=== PATIENT | male | born 2000 | race Caucasian/White ===

== ENCOUNTER 2023-02-22 14:12 | Emergency (ER) | payer OTHER, SELFPAY ==
--- NOTE | ~2023-02-22 | US_ITS ---
US scrotum doppler DATE: 02/22/2023 15:23 INDICATION: Right scrotal pain TECHNIQUE: Real-time and color flow imaging and Doppler analysis of the scrotal contents COMPARISON: None FINDINGS: Right testicle measures 4.2 x 2.7 x 2.3 cm. Left testicle measures 3.8 x 2.7 x 1.8 cm. No testicular mass lesion is detected. There is homogeneous symmetric echotexture of the testicles. There is however considerable increased vascularity of the right testicle compared to the left. Findi ngs suggest right orchitis and epididymitis. No evidence of varicoceles. IMPRESSION: Prominent asymmetric increased vascularity of the right testicle and epididymis suggestin g right epididymitis and orchitis No testicular mass lesion Small bilateral hydroceles Reviewed, dictated and finalized at [facility]. Reviewed, dictated and finalized at [facility]. IMPRESSION: Prominent asymmetric increased vascularity of the right testicle an d epididymis suggesting right epididymitis and orchitis No testicular mass lesion Small bilateral hydroceles
[2023-02-22 14:20] VITALS: BP 152/89; PULSE 85; RESP 16; TEMP 36.3; O2SAT 99
[2023-02-22 15:34] LABS: Appearance Urine Clear (Clear); Bilirubin Urine Negative (Negative); Blood Urine Negative (Negative); Color Urine Yellow (Yellow); Glucose Urine UA Negative (Negative); Ketones Urine Negative (Negative); Leukocyte Esterase Ur Negative LEU/UL (Negative); Nitrate Urine Negative (Negative); Protein Urine Negative (Negative); Specific Grav Ur 1.009 (1.001-1.035); Urobilinogen Urine 0.2 mg/dL (<2.0); pH Urine 7.5 (5.0-9.0)
[2023-02-22 15:42] LABS: Add Urine Microscopic? NO
--- NOTE | 2023-02-22 16:45 | ED.GENADULT ---
HPI - General Adult General Chief complaint: Urogenital-Male Stated complaint: testicular pain Time Seen by Provider: 02/22/23 14:53 Source: patient Mode of arrival: ambulatory Limitations: no limitations History of Present Illness HPI narrative: This is a 22-year-old male who presents to the ED with chief complaint of right testicular discomfort for the past 4 days. Patient states that patient started having discomfort in the right testicle that seem to come out of the blue on Monday. He does note that the last time he ejaculated about 1 week ago he seemed to have seen brown specks/yellow fluid which was new to him. He reports his last sexual encounter was in December and is unsure of any STD exposure. He denies any severe pain and states he is able to do all his normal daily functions. He describes it more of the discomfort that comes and goes. No association with exertion. Denies any urinary symptoms. Denies penile pain or swelling or discharge. Denies scrotal swelling or skin changes. Denies nausea, vomiting. Related Data Allergies Allergy/AdvReac Type Severity Reaction Status Date / Time No Known Allergies Allergy Verified 02/22/23 14:53 Review of Systems Review of Systems: All systems as dictated in HPI Exam Narrative: GENERAL: Well-appearing, well-nourished, and in no acute distress. HEAD: Normocephalic, atraumatic. EYES: PERRLA and EOMI. ENT: Nares clear, no rhinorrhea or epistaxis. Mucous membranes moist. Oropharynx without tonsillar hypertrophy exudate or other lesions. NECK: Supple. No adenopathy or masses. CHEST: No respiratory distress. Clear to auscultation. No wheezes rales or rhonchi HEART: Regular rate and rhythm. No murmur heard. Normal peripheral pulses. ABDOMEN: Soft, nontender, nondistended, normal active bowel sounds. MSK: Normal range of motion. No edema. SKIN: Warm, dry, no rash. NEURO: Alert and oriented x3. No focal deficits. PSYCH: Normal mood and affect. exam: No hernia palpated No tenderness throughout the testes No overlying skin changes or scrotal swelling. No discharge. Course Vital Signs Vital signs: Vital Signs Temperature 97.4 F L 02/22/23 14:20 Pulse Rate 85 02/22/23 14:20 Respiratory Rate 16 02/22/23 14:20 Blood Pressure 152/89 H 02/22/23 14:20 Pulse Oximetry 99 02/22/23 14:20 Temperature 97.4 F L 02/22/23 14:20 Pulse Rate 85 02/22/23 14:20 Respiratory Rate 16 02/22/23 14:20 Blood Pressure 152/89 H 02/22/23 14:20 Pulse Oximetry 99 02/22/23 14:20 Medical Decision Making MDM Narrative Medical decision making narrative: This is a 22-year-old male who presents to the ED with chief complaint of right testicular pain and change in semen. Vitals are normal. Exam is benign. exam does not reveal any tenderness or scrota swelling. No evidence of any hernia. UA is grossly normal. Ultrasound reveals evidence of epididymitis and orchitis on that right side. His STD labs are negative. His story is not concerning for STD. This is more likely a viral process. He states he had all of his childhood immunizations. I encouraged him to take Tylenol and ibuprofen as needed for pain. Follow-up with urology if the sting continues to be a problem over the next couple of weeks. Also encouraged PCP follow-up. Pt will be discharged in stable condition. Return precautions given and supportive measures discussed. Pt is understanding and agreeable with plan for discharge and follow-up with PCP. Vital Signs Vital Signs: Vital Signs Temperature 97.4 F L 02/22/23 14:20 Pulse Rate 85 02/22/23 14:20 Respiratory Rate 16 02/22/23 14:20 Blood Pressure 152/89 H 02/22/23 14:20 Pulse Oximetry 99 02/22/23 14:20 Temperature 97.4 F L 02/22/23 14:20 Pulse Rate 85 02/22/23 14:20 Respiratory Rate 16 02/22/23 14:20 Blood Pressure 152/89 H 02/22/23 14:20 Pulse Oximetry 99 02/22/23 14:20 Lab Data Labs:
[2023-02-22 18:08] LABS: Trichomonas Vag PCR NOT DETECTED (NOT DETECTE)
[2023-02-22 18:34] LABS: Chlamydia trachomatis NOT DETECTED (NOT DETECTE); Neisseria gonorrhoeae PCR NOT DETECTED (NOT DETECTE)
== END 2023-02-22 18:55 | disposition home or self-care (01) ==
PROVIDERS: Emergency Medicine; Emergency Provider Physician Assistant; PCP Family Medicine
DX: N45.3 Epididymo-orchitis (principal)
CPT/HCPCS: 76870; 81003; 87491; 87591; 87661; 93976; 99284